=== PATIENT | male | born 1955 | race Caucasian/White ===

== ENCOUNTER → 2016-08-31 | Outpatient (CLI) | payer BC ==
[~2016-08-31] MED LIST: OPTIRAY 320 IV PRN
--- NOTE | 2016-08-31 14:09 | DIAGNOSTIC IMAGING REPORT ---
CT SCAN OF THE CHEST, ABDOMEN, AND PELVIS WITH IV CONTRAST CLINICAL HISTORY: Sigmoid colon polyp. COMPARISON STUDY: Chest x-ray dated 05/16/2013. TECHNIQUE: Following the IV administration of 92 of Optiray 320, CT scan of the chest, abdomen, and pelvis was performed from the thoracic inlet to the proximal femora. Images are reviewed in the axial, sagittal, and coronal planes. IV contrast was administered without complication. Automated dose control exposure was utilized. CT DOSE: 474.17 mGy.cm FINDINGS: CHEST: Thyroid: Imaged portions of the thyroid gland are normal in size and attenuation. Thoracic aorta: There is mild atherosclerotic calcification of the thoracic aorta, which is normal in caliber and demonstrates standard 3-vessel arch anatomy. No dissection is seen. Heart: The heart is normal in size and configuration, and without pericardial effusion. There are coronary artery calcifications. The pulmonary trunk is normal in caliber. Lungs and pleural spaces: There is biapical scarring. No airspace consolidation or pleural effusion is seen. The trachea and central airways are clear. There is a small fat-containing Bochdalek hernia is noted at the right lung base. No concerning pulmonary lesion is seen. Mediastinum: There is no mediastinal lymphadenopathy. Gillian: Clear. Axillae: There is no axillary lymphadenopathy. Bony thorax: No lytic or blastic lesions are identified. Arthritic change is noted in the shoulders. ABDOMEN AND PELVIS: Liver: The contrast-enhanced liver is normal in size, contour, and attenuation. There is no intrahepatic or ductal dilatation. Scattered hepatic cysts measure up to 1.5 cm. Additional subcentimeter hypodensities also likely represent cysts but are too small for definitive characterization. The hepatic veins and portal veins are patent. Gallbladder: Unremarkable. Spleen: Normal in size and attenuation. Pancreas: Unremarkable. Adrenal glands: Unremarkable. Kidneys: The contrast enhanced kidneys are normal in size and without hydronephrosis. The kidneys enhance symmetrically. Abdominal vasculature: The abdominal aorta is normal in course and caliber noting moderate to advanced atherosclerotic calcification. Bowel: The small bowel and colon are normal in course and caliber. There is moderate diverticulosis of left colon without CT evidence of acute diverticulitis. Moderate colonic fecal retention is observed. The appendix is well-visualized and normal. Peritoneum: There is no intraperitoneal free air or abdominal ascites. Lymphadenopathy: None. Pelvic viscera: The bladder, prostate, and seminal vesicles are normal as visualized. There is a tiny fat-containing right inguinal hernia. Skeletal structures: No lytic or blastic lesions are seen. There are bilateral pars defects at L4 with 10 mm anterolisthesis at L4-L5. There is advanced degenerative disc space narrowing and endplate sclerosis at this level. IMPRESSION: 1. There is no evidence of metastatic disease in the chest, abdomen, or pelvis. 2. Lungs are clear. 3. There are no acute infectious or inflammatory findings in the abdomen or pelvis. 4. There is moderate diverticulosis of left colon without CT evidence of acute epiglottis. 5. The reported colonic polyp was not visualized by CT. 6. Additional changes as above. Electronically signed by: Orlando Brian M.D. 08/31/2016 2:08 PM Dictated Date/Time: 08/31/2016 1:56 PM
== END | disposition home or self-care (01) ==
LOC: C.CTS 13:33
PROVIDERS: ATTEND Colon & Rectal Surgery
DX: K63.5 Polyp of colon (principal); K57.30 Diverticulosis of large intestine without perforation or abscess without bleeding

== ENCOUNTER → 2016-12-24 | Outpatient (CLI) | payer BC ==
[2016-12-24 14:56] LABS: BASO % 0.5 %; BASO ABS # 0.03 K/uL (0-0.2); COMPLETE YES; EOS % 0.9 %; HEMATOCRIT 45.8 % (42-52); IG% 0.2 %; LYMPH % 22.8 %; LYMPH ABS # 1.28 K/uL (1.2-3.4); MEAN CELL VOLUME 91.4 fL (80-100); MEAN CORPUSCULAR HEMOGLOBIN 30.5 pg (25-34); MEAN CORPUSCULAR HGB CONC 33.4 g/dl (32-36); MEAN PLATELET VOLUME 10.7 fL (7.4-10.4); MONO % 6.1 %; NEUT % 69.5 %; PLATELET COUNT 215 K/uL (130-400); RED BLOOD COUNT 5.01 M/uL (4.7-6.1); WHITE BLOOD COUNT 5.61 K/uL (4.8-10.8)
[2016-12-24 15:08] LABS: CHOLESTEROL/HDL RATIO 2.9; PROSTATE SPECIFIC ANTIGEN 0.593 ng/ml (0.000-4.000)
== END | disposition home or self-care (01) ==
LOC: C.LAB1850 11:29
PROVIDERS: ATTEND Internal Medicine
DX: Z12.5 Encounter for screening for malignant neoplasm of prostate (principal); K62.5 Hemorrhage of anus and rectum; E78.00 Pure hypercholesterolemia, unspecified

== ENCOUNTER → 2017-10-07 | Outpatient (CLI) | payer BC ==
--- NOTE | 2017-10-07 12:09 | DIAGNOSTIC IMAGING REPORT ---
CT OF THE CHEST WITH IV CONTRAST CLINICAL HISTORY: RECTAL CA COMPARISON STUDY: 08/31/2016 TECHNIQUE: Following the IV administration of 117 mL of Optiray-320, CT of the thorax was performed from the thoracic inlet to the lung bases. Images are reviewed in the axial, sagittal, and coronal planes. IV contrast was administered without complication. A dose lowering technique was utilized adhering to the principles of ALARA. CT DOSE: 540.16 mGy.cm FINDINGS: Thyroid: Imaged portions of the thyroid gland are normal in appearance. Thoracic aorta: There is mild ectasia of the ascending thoracic aorta which measures 39 mm in diameter. Pulmonary vasculature: The pulmonary trunk is normal in caliber. There are no central filling defects identified to suggest pulmonary embolus. Note that this examination was not protocoled for the evaluation of pulmonary emboli. HEART: The heart is normal in size and configuration, without pericardial effusion. Lungs and pleural spaces: There is mild biapical scarring. There is no focal pulmonary consolidation. There are no pleural effusions. No suspicious pulmonary masses are visualized. Mediastinum: There is no mediastinal lymphadenopathy. Gillian: There is no evidence of pathologic hilar adenopathy Axilla: Clear. Upper abdomen: Scattered hepatic hypodensities remain stable and likely represent cysts. Skeletal structures: There are no lytic or blastic osseous lesions. IMPRESSION: No evidence of intrathoracic metastatic disease. Electronically signed by: Vlad Govea M.D. 10/07/2017 12:08 PM Dictated Date/Time: 10/07/2017 12:03 PM
--- NOTE | 2017-10-07 12:16 | DIAGNOSTIC IMAGING REPORT ---
ABDOMEN AND PELVIS CT WITH IV CONTRAST HISTORY: Follow-up study in a patient with rectal carcinoma. Subsequent treatment strategy. RECTAL CA TECHNIQUE: Multiaxial CT images of the abdomen and pelvis were performed following the use of intravenous contrast. A dose lowering technique was utilized adhering to the principles of ALARA. COMPARISON STUDY: CT chest of same day, CT abdomen and pelvis 08/31/2016. FINDINGS: Lung bases appear clear without metastatic foci identified. There is no pneumatosis or pneumoperitoneum identified. The imaged inferior cardiac chambers are unremarkable. Nonspecific mildly prominent right-sided retrocrural lymph node, 8 mm. There are multiple low attenuating lesions again noted throughout the liver which appear unchanged, many of these lesions are too small to characterize however suggest cysts. 8 mm lesion of the posterior right hepatic lobe may demonstrate some nodular enhancement, possibly reflecting a hemangioma. No definite evidence of intrahepatic metastasis. No intrahepatic biliary ductal dilation. Gallbladder is partially collapsed. Spleen, pancreas and adrenal glands are within normal limits. 4 mm low attenuating lesion of the posterior interpolar left kidney suggests renal cyst. No renal calculi or obstructive uropathy. Urinary bladder is partially collapsed with wall thickening, likely secondary to partial distention. Calcifications are seen within the central prostate which appears mildly prominent in size. Multiple phleboliths of the pelvis. Moderate atherosclerosis of the aorta without aneurysm. No definite pathologic adenopathy identified. There is no bowel obstruction identified. Postoperative changes compatible with partial sigmoid colon resection. Mild colonic diverticulosis without diverticulitis. The appendix is not definitively seen. No secondary signs to suggest acute appendicitis. No ascites or significant inflammatory changes identified. Soft tissues are unremarkable. Bones appear intact without suspicious lytic or blastic bony lesions. Severe intervertebral disc space narrowing at L4-L5. Remote bilateral pars defects at L4 with 10 mm anterolisthesis. Severe facet arthropathy at L4-L5 and L5-S1. IMPRESSION: 1. Postoperative changes from prior partial sigmoid colon resection. 2. No evidence of pathologic adenopathy or metastatic disease within the abdomen or pelvis. 3. Nonspecific mildly prominent right-sided retrocrural lymph node, stable from comparison. 4. Colonic diverticulosis without CT evidence of acute diverticulitis. 5. Additional findings as above. Electronically signed by: Edd Navarro M.D. 10/07/2017 12:14 PM Dictated Date/Time: 10/07/2017 12:03 PM
== END | disposition home or self-care (01) ==
LOC: C.CTS 11:37
PROVIDERS: ATTEND Colon & Rectal Surgery
DX: C20 Malignant neoplasm of rectum (principal)

== ENCOUNTER 2021-04-28 09:15 | Observation (INO) ==
[2021-04-28 09:59] LABS: Hematocrit (blood only) 47.2 % (42-52); Hemoglobin 16.4 g/dL (14.0-18.0); Mean Corpuscular Hemoglobin 32.3 pg (25-34); Mean Corpuscular Hgb Conc 34.7 g/dL (32-36); Mean Corpuscular Volume 93.1 fL (80-100); Mean Platelet Volume 10.8 fL (7.4-10.4); Platelet Count 218 K/uL (130-400); RDW Standard Deviation 44.4 fL (36.4-46.3); Red Blood Count 5.07 M/uL (4.7-6.1); White Blood Count 5.75 K/uL (4.8-10.8)
[2021-04-28 10:02] LABS: Appearance Urine Clear (Clear); Bilirubin Urine Negative (Negative); Blood Urine Negative (Negative); Color Urine Yellow; Glucose Urine UA Negative (Negative); Ketones Urine Negative (Negative); Leukocyte Esterase Urine Negative (Negative); Nitrite Urine Negative (Negative); Protein Urine Negative (Negative); Specific Gravity Urine 1.003 (1.000-1.030); Urobilinogen Urine Negative (Negative); pH Urine 7.5 (4.5-7.5)
--- NOTE | 2021-04-28 10:11 | Emergency Department Note ---
History of Present Illness General Chief complaint: Confusion Stated complaint: DISORIENTED,SHORT TERM MEMORY LOSS Time Seen by Provider: 04/28/21 09:52 Source: patient, RN notes reviewed and old records reviewed Mode of arrival: ambulatory Limitations: no limitations History of Present Illness This patient is a 65-year-old previously healthy male who had an episode where he suddenly became disoriented according to himself. He said this happened between 745 and 815 he estimates. He was okay when he woke up at 6:00 this morning he has had no recent illness or trauma. He was working on email in his office at home and could remember who is sending the email to and he could not figure out what he was doing and where his had gone. An employee called him and he could not recall what was going on there either. He feels better the episode he estimates last about 1/2-hour he says he still feels a little foggy but has no other complaints. He has had no nausea or vomiting or numbness or weakness no headache neck pain or stiffness. No difficulty speaking or swallowing at any point. No fever or chills. No change in vision. No chest pain shortness of breath or pleurisy. No syncope or presyncope no dizziness. No urinary symptoms such as dysuria or hematuria. No bowel or bladder problems no back pain no blood in stool. He thinks he had an episode like this once in the past. Home Medications Medication Instructions Recorded Confirmed Type aspirin 81 mg tablet,delayed 81 mg PO HS tab 12/29/18 04/28/21 History release atorvastatin 20 mg tablet 20 mg PO HS #90 tab 01/16/21 04/28/21 Rx nystatin-triamcinolone 100,000 1 appln TOP BID PRN 04/28/21 04/28/21 History unit/g-0.1 % topical cream omega 0-mco-eat-fish oil 1,000 mg 1 cap PO DAILY 04/28/21 04/28/21 History (120 mg-180 mg) capsule (Fish Oil) Allergies Allergy/AdvReac Type Severity Reaction Status Date / Time No Known Drug Allergies Allergy Verified 01/16/21 08:18 Past Med/Surg History Medical History (Updated 04/28/21 @ 16:38 by Michael Metz MD) Anxiety Colon cancer 08/2016--SX Depression Hyperlipidemia Osteoarthritis Surgical History History of bowel resection (09/08/16) 2017--[place] [facility] [place] of colonoscopy History of repair of left rotator cuff (~2014) History of surgery (05/29/13) spermatocelectomy History of tooth extraction WISDOM TEETH Family History Mother Family history of reaction to anesthesia NAUSEATED Palpitations Grandmother Diabetes Hypertension Father Myocardial infarction Heart disease Aunt Hypertension Breast cancer Denies family history of Colon cancer Ovarian cancer Prostate cancer Social History Smoking Status: Never smoker Second Hand Exposure: No; Hx Alcohol Use: Yes Alcohol type: hard liquor Hx Substance Use: No Preferred Language: Serbian Communication Ability: Effective Supervising Law Enforcement Analyst Required: No Beliefs That Will Affect Care: Christianity Christianity Beliefs: PENTECOSTALISM marital status: Current Living Situation: Significant Other current occupational status: employed Feels Safe at Home: Yes Childhood Exposure to Second-Hand Smoke: Yes Dental Care, Regularly: Yes Physical Activity Frequency: Daily Seatbelt Use: always Sunscreen Use: No Assistive Devices: Glasses Review of Systems A total of 10 systems reviewed and were otherwise negative Physical Exam Vital Signs Vital Signs - 24 hr 04/28/21 09:18 04/28/21 09:48 04/28/21 10:00 Temperature 36.6 C Temperature Source Temporal Artery Scan Pulse Rate 79 67 68 Pulse Rate from SpO2 Sensor 67 Pulse Rhythm Respiratory Rate 16 19 18 Blood Pressure 155/92 H 145/98 H 145/98 H Blood Pressure Mean 113 113 113 Pulse Oximetry 99 97 98 Oxygen Delivery Method Room Air Room Air Room Air Sepsis Recent Fever Within 48 Hours No Sepsis New/Unexplained Change in Mental Status Yes Sepsis Action Taken by Nursing No Action Required 04/28/21 10:26 04/28/21 10:30 04/28/21 11:10 Temperature Temperature Source Pulse Rate 84 60 64 Pulse Rate from SpO2 Sensor 61 Pulse Rhythm Regular Respiratory Rate 18 18 14 Blood Pressure 135/96 140/88 Blood Pressure Mean 109 105 Pulse Oximetry 95 99 99 Oxygen Delivery Method Room Air Room Air Room Air Sepsis Recent Fever Within 48 Hours Sepsis New/Unexplained Change in Mental Status Sepsis Action Taken by Nursing 10/12/21 11:30 Temperature Temperature Source Pulse Rate 63 Pulse Rate from SpO2 Sensor Pulse Rhythm Respiratory Rate 16 Blood Pressure 128/91 Blood Pressure Mean 103 Pulse Oximetry 98 Oxygen Delivery Method Room Air Sepsis Recent Fever Within 48 Hours Sepsis New/Unexplained Change in Mental Status Sepsis Action Taken by Nursing General: Well developed well nourished middle-age male who appears in no acute distress, breathing comfortably on room air. Normal speech, nonslurred. Alert and orient x3. Able to name objects and read sentences without any difficulty. HEENT: Normal cephalic atraumatic. Pupils are equal round and reactive to light. Extraocular movements are intact. Oropharynx is pink with moist mucous membranes. No swelling of the mouth lips or tongue. Neck: Supple with a midline trachea. No meningeal signs or stiffness, no JVD or bruits. No Stridor. Chest: Clear to auscultation bilaterally. No wheezes or rhonchi. No increased work of breathing. Heart: Regular rate and rhythm without murmurs or gallops. Abdomen: Soft nontender, nondistended without rebound guarding or rigidity. Extremities: No cyanosis clubbing or edema. No calf tenderness or assymetry Spine/Back. Non tender to palpation. No CVA tenderness Skin: Good turgor without rashes. Neurologic exam: Cranial nerves two through 12 are intact. Motor and sensation are intact and symmetrical throughout. He has no neurologic deficits on the st roke scale Course Administered Medications Discontinued Medications Ioversol (Optiray 320 125ml) 120 ml IV ONCE ONE Stop: 04/28/21 10:46 Last Admin: 04/28/21 10:42 Dose: 120 ml Documented by: [id number] Medical Decision Making Differential Diagnosis Transient global amnesia, electrolyte or metabolic abnormality, intracranial process, TIA, CVA, anxiety, Covid, hypoglycemia, infection Medical Records Attestation: I reviewed the patient's medical records. Home Medications Current Medication List: was personally reviewed by me Laboratory Data Attestation: I reviewed the patient's lab results. Result diagrams: 04/28/21 09:44 04/28/21 09:44 Lab Results 04/28/21 04/28/21 04/28/21 Range/Units 09:38 09:44 09:44 WBC 5.75 (4.8-10.8) K/uL RBC 5.07 (4.7-6.1) M/uL Hgb 16.4 (14.0-18.0) g/dL Hct 47.2 (42-52) % MCV 93.1 (80-100) fL MCH 32.3 (25-34) pg MCHC 34.7 (32-36) g/dL RDW Std Deviation 44.4 (36.4-46.3) fL RDW Coeff of Nini 13.0 (11.5-14.5) % Plt Count 218 (130-400) K/uL MPV 10.8 H (7.4-10.4) fL PT 10.3 (9.0-12.0) Seconds INR 1.0 (0.9-1.1) APTT 27.1 (21.0-31.0) Seconds PTT Ratio 1.0 Sodium (136-145) mmol/L Potassium (3.5-5.1) mmol/L Chloride (98-107) mmol/L Carbon Dioxide (21-32) mmol/L Anion Gap (3-11) BUN (7-18) mg/dl Creatinine (0.6-1.4) mg/dl Est Cr Clr Drug Dosing ml/min Est GFR ( Amer) ml/min Est GFR (Non-Af Amer) ml/min BUN/Creatinine Ratio (10-20) Glucose (70-99) mg/dl Calcium (8.5-10.1) mg/dl Magnesium (1.8-2.4) mg/dl Total Bilirubin (0.2-1) mg/dl AST (15-37) U/L ALT (12-78) U/L Alkaline Phosphatase (45-117) U/L Troponin I (0-0.045) ng/ml Total Protein (6.4-8.2) gm/dl Albumin (3.4-5.0) gm/dl Globulin (2.5-4.0) gm/dl Albumin/Globulin Ratio (0.9-2) Urine Color Yellow Urine Appearance Clear (Clear) Urine pH 7.5 (4.5-7.5) Ur Specific [place] 1.003 (1.000-1.030) Urine Protein Negative (Negative) Urine Glucose (UA) Negative (Negative) Urine Ketones Negative (Negative) Urine Blood Negative (Negative) Urine Nitrite Negative (Negative) Urine Bilirubin Negative (Negative) Urine Urobilinogen Negative (Negative) Ur Leukocyte Esterase Negative (Negative) COVID-19 Eval Order SARS-CoV-2 (PCR) (Negative) 04/28/21 04/28/21 04/28/21 Range/Units 09:44 10:13 10:13 WBC (4.8-10.8) K/uL RBC (4.7-6.1) M/uL Hgb (14.0-18.0) g/dL Hct (42-52) % MCV (80-100) fL MCH (25-34) pg MCHC (32-36) g/dL RDW Std Deviation (36.4-46.3) fL RDW Coeff of Nini (11.5-14.5) % Plt Count (130-400) K/uL MPV (7.4-10.4) fL PT (9.0-12.0) Seconds INR (0.9-1.1) APTT (21.0-31.0) Seconds PTT Ratio Sodium 139 (136-145) mmol/L Potassium 4.0 (3.5-5.1) mmol/L Chloride 106 (98-107) mmol/L Carbon Dioxide 27 (21-32) mmol/L Anion Gap 6.0 (3-11) BUN 14 (7-18) mg/dl Creatinine 0.77 (0.6-1.4) mg/dl Est Cr Clr Drug Dosing 104.9 ml/min Est GFR ( Amer) 111.9 ml/min Est GFR (Non-Af Amer) 96.6 ml/min BUN/Creatinine Ratio 17.7 (10-20) Glucose 116 H (70-99) mg/dl Calcium 9.1 (8.5-10.1) mg/dl Magnesium 2.1 (1.8-2.4) mg/dl Total Bilirubin 1.0 (0.2-1) mg/dl AST 21 (15-37) U/L ALT 35 (12-78) U/L Alkaline Phosphatase 71 (45-117) U/L Troponin I < 0.015 (0-0.045) ng/ml Total Protein 7.2 (6.4-8.2) gm/dl Albumin 3.8 (3.4-5.0) gm/dl Globulin 3.4 (2.5-4.0) gm/dl Albumin/Globulin Ratio 1.1 (0.9-2) Urine Color Urine Appearance (Clear) Urine pH (4.5-7.5) Ur Specific [place] (1.000-1.030) Urine Protein (Negative) Urine Glucose (UA) (Negative) Urine Ketones (Negative) Urine Blood (Negative) Urine Nitrite (Negative) Urine Bilirubin (Negative) Urine Urobilinogen (Negative) Ur Leukocyte Esterase (Negative) COVID-19 Eval Order Covid19 at [facility] SARS-CoV-2 (PCR) NEGATIVE (Negative) Imaging Data Attestation: I personally reviewed and interpreted this imaging study as follows: My Impression: Chest x-rayno acute infiltrate, failure, pneumothorax seen Radiologist's Impression: Chest X-Ray 04/28/21 09:38 XR chest 1V portable CLINICAL HISTORY: stroke alert COMPARISON STUDY: Chest radiograph May 16, 2013. Chest CT October 07, 2017. FINDINGS: Lung volumes are normal. Lungs are clear. There is no pneumothorax or pleural effusion. Cardiac size is normal. Mediastinal contours are normal. There is no evidence for pulmonary edema. IMPRESSION: No acute cardiopulmonary findings. ACT 112: Negative or not required by law. Electronically signed by: Matteo Haley M.D. 04/28/2021 10:[address] 04/28/21 10:[address], HEAD CTA HISTORY: episode of confusion TECHNIQUE: Multiaxial CT images of the head were performed both before and after the intravenous administration of contrast to evaluate the major cerebral vessels. Maximum intensity projection images were also obtained. A dose lowerin g technique was utilized adhering to the principles of ALARA. COMPARISON: None. FINDINGS: Head CT: The paranasal sinuses and mastoid air cells are clear. The calvarium and skull base are intact. The ventricles and sulci are within normal limits. There is no mass, hematoma, midline shift, or acute infarct. Head CTA: Visualized intracranial internal carotid arteries, distal vertebral arteries, and basilar artery are widely patent. There is no significant stenosis, occlusion, or aneurysm seen within the bilateral ACAs, MCAs, or resident care associate. Severely hypoplastic distal left vertebral artery. This is likely developmental. There is a dominant distal right vertebral artery with a focal area of calcified plaque. Please refer to same day neck CTA for further evaluation of the left cervical internal carotid artery. The major dural venous sinuses are patent. IMPRESSION: 1. No acute intracranial abnormality. 2. No significant stenosis, occlusion, or aneurysm within the [place] ACT 112: Negative or not required by law. Electronically signed by: Yg Valentine M.D. 04/28/2021 11:06 AM Head CTA 04/28/21 10:[address], HEAD CTA HISTORY: episode of confusion TECHNIQUE: Multiaxial CT images of the head were performed both before and after the intravenous administration of contrast to evaluate the major cerebral vessels. Maximum intensity projection images were also obtained. A dose lowerin g technique was utilized adhering to the principles of ALARA. COMPARISON: None. FINDINGS: Head CT: The paranasal sinuses and mastoid air cells are clear. The calvarium and skull base are intact. The ventricles and sulci are within normal limits. There is no mass, hematoma, midline shift, or acute infarct. Head CTA: Visualized intracranial internal carotid arteries, distal vertebral arteries, and basilar artery are widely patent. There is no significant stenosis, occlusion, or aneurysm seen within the bilateral ACAs, MCAs, or resident care associate. Severely hypoplastic distal left vertebral artery. This is likely developmental. There is a dominant distal right vertebral artery with a focal area of calcified plaque. Please refer to same day neck CTA for further evaluation of the left cervical internal carotid artery. The major dural venous sinuses are patent. IMPRESSION: 1. No acute intracranial abnormality. 2. No significant stenosis, occlusion, or aneurysm within the [place] ACT 112: Negative or not required by law. Electronically signed by: gY Valentine M.D. 04/28/2021 11:06 AM Neck CTA 04/28/21 10:05 CT ANGIOGRAPHY OF THE NECK WITH CONTRAST CLINICAL HISTORY: episode of confusion COMPARISON STUDY: No previous studies for comparison. Technique: CT angiography of the carotid and vertebral arteries was obtained using Optiray and 3D reconstruction on an independent workstation. NASCET criteria was utilized. Automated exposure control was utilized for the study. A dose lowering technique was utilized adhering to the principles of ALARA. Findings: A 4 mm right upper lobe nodule is similar to prior chest CTs. This is likely benign. No acute cervical spine fracture. The right vertebral artery is dominant and patent. The left vertebral artery is diminutive with mild narrowing at the vessel origin. CTA of the head will be reported separately. There is mild plaque within the proximal bilateral internal carotid arteries. Note is made of abnormal appearance of the distal cervical portion of the left internal carotid artery with an outpouching measures 1.3 x 0.7 cm in the craniocaudal by AP dimensions respectively. There is moderate associated calcified plaque. There is mild associated luminal narrowing of the distal cervical portion of the left internal carotid artery. This finding is not acute. No additional significant abnormalities are identified within the major vessels of the neck. IMPRESSION: 1. Abnormal appearance of the distal cervical portion of the left internal carotid artery with a 1.3 x 0.7 cm outpouching which favors a saccular aneurysm. Moderate associated calcified plaque with mild luminal narrowing. Chronic underlying dissection cannot be excluded. 2. No additional significant abnormalities within the major vessels of the neck. 3. Dominant, patent right vertebral artery. Diminutive left vertebral artery. ACT 112: Negative or not required by law. Electronically signed by: Matteo Haley M.D. 04/28/2021 11:11 AM ECG Data Attestation: I personally reviewed and interpreted this ECG as follows: Indication: + weakness Rate (beats per minute): 74 Rhythm: + normal sinus ECG Intervals/blocks: + Normal QRS, + Normal QT and + Normal MA ECG Maud: + Normal ECG ST segments: + Normal ST segments ECG Findings: no PACs or no PVCs Comparison ECG Date: from (04/20/18) Change: no significant change MDM Narrative This patient comes in as described above. He was placed in room B4. Is here after having episode of confusion. He seems to be doing better now. he has a nonfocal normal neurologic exam at present. IV access established and blood work was obtained a full stroke type work-up was obtained including CAT scan of the head as well as CTA of the head and neck. Multiple blood testing was obtained EKG was obtained. EKG does not suggest acute coronary syndrome or arrhythmia, nor do his symptoms. Troponin is normal. He has no acute electrolyte or metabolic abnormalities. There is nothing suggest liver, gallbladder, or pancreas disease. CAT scan of the head with CTA of the head were also unremarkable. The CT of the neck has some abnormality in the left carotid there may be an aneurysm it is possible he could have a chronic dissection. I do think he likely had a transient global amnesia episode but with the possible carotid disease,I do think he needs to come in as well for neurologic work-up and evaluation. I have consulted Dr. Aguirre to see him for these measures. Continuous cardiac monitoring: An order was placed in EMR for continuous monitor worker. Upon my interpretation the patient was noted be in normal sinus rhythm with a rate of 70 Impression & Plan Transient global amnesia, Left-sided carotid artery disease, Lab test negative for COVID-19 virus, Episode of confusion Discharge Plan Visit Data Chief Complaint: Confusion Stated Complaint: DISORIENTED,SHORT TERM MEMORY LOSS ED Provider: Michael Metz Discharge Problem: Transient global amnesia, Left-sided carotid artery disease, Lab test negative for COVID-19 virus, Episode of confusion Discharge Problem: Left-sided carotid artery disease Qualifiers: Carotid artery disease type: unspecified Qualified Code(s): I77.9 - Disorder of arteries and arterioles, unspecified
[2021-04-28 10:14] LABS: Partial Thromboplastin Time 27.1 Seconds (21.0-31.0); Prothrombin Time 10.3 Seconds (9.0-12.0)
[2021-04-28 10:18] LABS: Alanine Aminotransferase 35 U/L (12-78); Albumin Level 3.8 gm/dl (3.4-5.0); Aspartate Aminotransferase 21 U/L (15-37); BUN Creatinine Ratio 17.7 (10-20); Blood Urea Nitrogen 14 mg/dl (7-18); Calcium 9.1 mg/dl (8.5-10.1); Carbon Dioxide 27 mmol/L (21-32); Chloride 106 mmol/L (98-107); Creatinine Clr Calc Pharmacy 104.9 ml/min; Est GFR (African American) 111.9 ml/min; Est GFR (Non-African American) 96.6 ml/min; Glucose 116 mg/dl (70-99); Magnesium 2.1 mg/dl (1.8-2.4); Sodium 139 mmol/L (136-145)
[2021-04-28 10:20] LABS: Albumin Globulin Ratio 1.1 (0.9-2); Alkaline Phosphatase 71 U/L (45-117); Globulin 3.4 gm/dl (2.5-4.0); Total Protein 7.2 gm/dl (6.4-8.2)
--- NOTE | 2021-04-28 10:26 | XRay Report ---
XR chest 1V portable CLINICAL HISTORY: stroke alert COMPARISON STUDY: Chest radiograph May 16, 2013. Chest CT October 07, 2017. FINDINGS: Lung volumes are normal. Lungs are clear. There is no pneumothorax or pleural effusion. Car diac size is normal. Mediastinal contours are normal. There is no evidence for pulmonary edema. IMPRESSION: No acute cardiopulmonary findings. ACT 112: Negative or not required by law. Electronically signed by: Matteo Haley M.D. 04/28/2021 10:25 AM
[2021-04-28] MEDS ORDERED: OPTIRAY 320 125ml IV ONE (10:45)
--- NOTE | 2021-04-28 11:07 | CT Scan Report ---
NONCONTRAST HEAD CT, HEAD CTA HISTORY: episode of confusion TECHNIQUE: Multiaxial CT images of the head were performed both before and after the intravenous admi nistration of contrast to evaluate the major cerebral vessels. Maximum intensity projection images we re also obtained. A dose lowering technique was utilized adhering to the principles of ALARA. COMPARISON: None. FINDINGS: Head CT: The paranasal sinuses and mastoid air cells are clear. The calvarium and skull base are inta ct. The ventricles and sulci are within normal limits. There is no mass, hematoma, midline shift, or acute infarct. Head CTA: Visualized intracranial internal carotid arteries, distal vertebral arteries, and basilar a rtery are widely patent. There is no significant stenosis, occlusion, or aneurysm seen within the erik ateral ACAs, MCAs, or open claims representative. Severely hypoplastic distal left vertebral artery. This is likely develop mental. There is a dominant distal right vertebral artery with a focal area of calcified plaque. Plea se refer to same day neck CTA for further evaluation of the left cervical internal carotid artery. Th e major dural venous sinuses are patent. IMPRESSION: 1. No acute intracranial abnormality. 2. No significant stenosis, occlusion, or aneurysm within the [place] ACT 112: Negative or not required by law. Electronically signed by: Yg Valentine M.D. 04/28/2021 11:06 AM
--- NOTE | 2021-04-28 11:07 | CT Scan Report ---
NONCONTRAST HEAD CT, HEAD CTA HISTORY: episode of confusion TECHNIQUE: Multiaxial CT images of the head were performed both before and after the intravenous admi nistration of contrast to evaluate the major cerebral vessels. Maximum intensity projection images we re also obtained. A dose lowering technique was utilized adhering to the principles of ALARA. COMPARISON: None. FINDINGS: Head CT: The paranasal sinuses and mastoid air cells are clear. The calvarium and skull base are inta ct. The ventricles and sulci are within normal limits. There is no mass, hematoma, midline shift, or acute infarct. Head CTA: Visualized intracranial internal carotid arteries, distal vertebral arteries, and basilar a rtery are widely patent. There is no significant stenosis, occlusion, or aneurysm seen within the erik ateral ACAs, MCAs, or glass lined tank repairer. Severely hypoplastic distal left vertebral artery. This is likely develop mental. There is a dominant distal right vertebral artery with a focal area of calcified plaque. Plea se refer to same day neck CTA for further evaluation of the left cervical internal carotid artery. Th e major dural venous sinuses are patent. IMPRESSION: 1. No acute intracranial abnormality. 2. No significant stenosis, occlusion, or aneurysm within the [place] ACT 112: Negative or not required by law. Electronically signed by: Yg Valentine M.D. 04/28/2021 11:06 AM
--- NOTE | 2021-04-28 11:13 | CT Scan Report ---
CT ANGIOGRAPHY OF THE NECK WITH CONTRAST CLINICAL HISTORY: episode of confusion COMPARISON STUDY: No previous studies for comparison. Technique: CT angiography of the carotid and vertebral arteries was obtained using Optiray and 3D rec onstruction on an independent workstation. NASCET criteria was utilized. Automated exposure control was utilized for the study. A dose lowering technique was utilized adhering to the principles of ALA RA. Findings: A 4 mm right upper lobe nodule is similar to prior chest CTs. This is likely benign. No acu te cervical spine fracture. The right vertebral artery is dominant and patent. The left vertebral art kim is diminutive with mild narrowing at the vessel origin. CTA of the head will be reported separate ly. There is mild plaque within the proximal bilateral internal carotid arteries. Note is made of abn ormal appearance of the distal cervical portion of the left internal carotid artery with an outpouchi ng measures 1.3 x 0.7 cm in the craniocaudal by AP dimensions respectively. There is moderate associa carol calcified plaque. There is mild associated luminal narrowing of the distal cervical portion of th e left internal carotid artery. This finding is not acute. No additional significant abnormalities ar e identified within the major vessels of the neck. IMPRESSION: 1. Abnormal appearance of the distal cervical portion of the left internal carotid artery with a 1.3 x 0.7 cm outpouching which favors a saccular aneurysm. Moderate associated calcified plaque with mild luminal narrowing. Chronic underlying dissection cannot be excluded. 2. No additional significant abnormalities within the major vessels of the neck. 3. Dominant, patent right vertebral artery. Diminutive left vertebral artery. ACT 112: Negative or not required by law. Electronically signed by: Matteo Haley M.D. 04/28/2021 11:11 AM
[2021-04-28 11:22] LABS: Troponin I < 0.015 ng/ml (0-0.045)
--- NOTE | 2021-04-28 13:02 | History & Physical Report ---
Date of Service April 28, 2021 Assessment & Plan (1) Amnesia, global, transient: Plan: Suspect this represent a TIA but also concerned about a partial seizure I will place patient in monitored observation on stroke protocol Check MRI of the brain Check EEG Patient already on a low-dose aspirin which will be continued Continue atorvastatin as ordered, check fasting lipid panel I will ask neurology to evaluate for further recommendations (2) Hypercholesterolemia: Plan: Continue atorvastatin as noted above Check fasting lipid panel (3) Carotid aneurysm, left: Plan: Unclear if this is relevant the patient symptoms. Will await neurology evaluation. If further work-up desired, consideration to vascular consultation as well History of Present Illness Chief Complaint: confusion Primary Care Provider: Charli Acosta MD This is a 65-year-old male past medical history hypercholesterolemia that presents today complaining of episodic confusion. Patient is here with significant other and is a good historian. Patient tells me that he was feeling fine today. He went to his home office to work on his computer. While he was working on a schedule, he noted that he had significant amnesia-like symptoms. He was able to see the schedule but did not recognize any of the names or why he was looking at it. He may have answered some emails but did not recall what may have been exchanged or why he was sending these. At one point, an employee called and he was unable to remember who the employee was or why he was calling. This confusion lasted approximately 30 minutes and seemed to mostly resolved very suddenly. At no time did he have any other neurologic symptoms such as weakness, numbness, tingling of any extremities, slurred speech, visual changes, headache, or other issues. At the time my evaluation, the patient tells me that he feels essentially back to normal if not slightly foggy in his mentation. Patient has had not had any recurrent neurologic symptoms since his arrival to the emergency room. Patient is now being placed in observation for possible TIA versus seizure. Allergies Allergy/AdvReac Type Severity Reaction Status Date / Time No Known Drug Allergies Allergy Verified 01/16/21 08:18 Home Medications Medication Instructions Recorded Confirmed Type aspirin 81 mg tablet,delayed 81 mg PO HS tab 12/29/18 04/28/21 History release atorvastatin 20 mg tablet 20 mg PO HS #90 tab 01/16/21 04/28/21 Rx nystatin-triamcinolone 100,000 1 appln TOP BID PRN 10/12/21 10/12/21 History unit/g-0.1 % topical cream omega 6-kjo-iry-fish oil 1,000 mg 1 cap PO DAILY 04/28/21 04/28/21 History (120 mg-180 mg) capsule (Fish Oil) Past Med/Surg History Medical History (Updated 04/28/21 @ 12:59 by Imtiaz Aguirre DO) Anxiety Colon cancer 08/2016--SX Depression Hyperlipidemia Osteoarthritis Surgical History History of bowel resection (09/08/16) 2016--FOR COLON CANCER @ [facility] [place] History of colonoscopy History of repair of left rotator cuff (~2014) History of surgery (05/29/13) spermatocelectomy History of tooth extraction WISDOM TEETH Family History Mother Family history of reaction to anesthesia NAUSEATED Palpitations Grandmother Diabetes Hypertension Father Myocardial infarction Heart disease Aunt Hypertension Breast cancer Denies family history of Colon cancer Ovarian cancer Prostate cancer Social History Smoking Status: Never smoker Second Hand Exposure: No; Hx Alcohol Use: Yes Alcohol type: hard liquor Hx Substance Use: No Preferred Language: Venezuelan Communication Ability: Effective Engraver Jewelry Required: No Beliefs That Will Affect Care: Voodoo Voodoo Beliefs: SHINTO marital status: Current Living Situation: Significant Other current occupational status: employed Feels Safe at Home: Yes Childhood Exposure to Second-Hand Smoke: Yes Dental Care, Regularly: Yes Physical Activity Frequency: Daily Seatbelt Use: always Sunscreen Use: No Assistive Devices: Glasses Review of Systems Constitutional: no fever, no chills, no weakness, no weight loss and no weight gain Eyes: as per Subjective / HPI Respiratory: no cough, no chest congestion, no dyspnea and no dyspnea on exertion Cardiovascular: no chest pain, no orthopnea, no palpitations, no lightheadedness and no edema Gastrointestinal: no abdominal pain, no nausea, no vomiting, no constipation and no diarrhea/loose stools Musculoskeletal: no back pain, no neck pain, no joint pain, no stiffness and no myalgia Integumentary: no rash Neurologic: + confusion and + memory loss; no gait abnormality, no unsteadiness, no falls, no generalized weakness, no paralysis, no loss of sensation, no numbness, no paresthesia, no radiating pain, no abnormal movements, no syncope, no abnormal speech and no behavioral changes Physical Exam Constitutional: cooperative; no acute distress Neck: trachea midline, no thyromegaly Respiratory: normal respiratory effort Auscultation: lungs clear to auscultation bilaterally; no crackles, no rales, no rhonchi and no wheezes Cardiovascular: Rate/Rhythm: regular rate and regular rhythm Heart Sounds: normal S1 and normal S2 Vessels: no JVD and no carotid bruit Gastrointestinal (Abdomen): Inspection/Auscultation: abdomen normal to inspection Percussion/Palpation: abdomen soft; abdomen nontender, no guarding, abdomen not rigid and no hepatosplenomegaly Skin: no rashes, warm and dry Neurologic: patellar DTR's 2+ bilat, sensation intact and PERRL, EOMI, accommodation nl, no face palsy, no dysarthria Results & Data Results & Data ([facility]) Vital Signs (Past 12 Hours) Vital Signs Temp Pulse Resp BP Pulse Ox 04/28/21 10:26 84 18 95 04/28/21 09:48 67 19 145/98 H 97 04/28/21 09:18 36.6 C 79 16 155/92 H 99 Laboratory Results Laboratory Results WBC 5.75 K/uL (4.8-10.8) 04/28/21 09:44 RBC 5.07 M/uL (4.7-6.1) 04/28/21 09:44 Hgb 16.4 g/dL (14.0-18.0) 04/28/21 09:44 Hct 47.2 % (42-52) 04/28/21 09:44 MCV 93.1 fL (80-100) 04/28/21 09:44 MCH 32.3 pg (25-34) 04/28/21 09:44 MCHC 34.7 g/dL (32-36) 04/28/21 09:44 RDW Std Deviation 44.4 fL (36.4-46.3) 04/28/21 09:44 RDW Coeff of Nini 13.0 % (11.5-14.5) 04/28/21 09:44 Plt Count 218 K/uL (130-400) 04/28/21 09:44 MPV 10.8 fL (7.4-10.4) H 04/28/21 09:44 PT 10.3 Seconds (9.0-12.0) 04/28/21 09:44 INR 1.0 (0.9-1.1) 04/28/21 09:44 APTT 27.1 Seconds (21.0-31.0) 04/28/21 09:44 PTT Ratio 1.0 04/28/21 09:44 Sodium 139 mmol/L (136-145) 04/28/21 09:44 Potassium 4.0 mmol/L (3.5-5.1) 04/28/21 09:44 Chloride 106 mmol/L (98-107) 04/28/21 09:44 Carbon Dioxide 27 mmol/L (21-32) 04/28/21 09:44 Anion Gap 6.0 (3-11) 04/28/21 09:44 BUN 14 mg/dl (7-18) 04/28/21 09:44 Creatinine 0.77 mg/dl (0.6-1.4) 04/28/21 09:44 Est Cr Clr Drug Dosing 104.9 ml/min 04/28/21 09:44 Est GFR ( Amer) 111.9 ml/min 04/28/21 09:44 Est GFR (Non-Af Amer) 96.6 ml/min 04/28/21 09:44 BUN/Creatinine Ratio 17.7 (10-20) 04/28/21 09:44 Glucose 116 mg/dl (70-99) H 04/28/21 09:44 Calcium 9.1 mg/dl (8.5-10.1) 04/28/21 09:44 Magnesium 2.1 mg/dl (1.8-2.4) 04/28/21 09:44 Total Bilirubin 1.0 mg/dl (0.2-1) 04/28/21 09:44 AST 21 U/L (15-37) 04/28/21 09:44 ALT 35 U/L (12-78) 04/28/21 09:44 Alkaline Phosphatase 71 U/L (45-117) 04/28/21 09:44 Troponin I < 0.015 ng/ml (0-0.045) 04/28/21 09:44 Total Protein 7.2 gm/dl (6.4-8.2) 04/28/21 09:44 Albumin 3.8 gm/dl (3.4-5.0) 04/28/21 09:44 Globulin 3.4 gm/dl (2.5-4.0) 04/28/21 09:44 Albumin/Globulin Ratio 1.1 (0.9-2) 04/28/21 09:44 Urine Color Yellow 04/28/21 09:38 Urine Appearance Clear (Clear) 04/28/21 09:38 Urine pH 7.5 (4.5-7.5) 04/28/21 09:38 Ur Specific [place] 1.003 (1.000-1.030) 04/28/21 09:38 Urine Protein Negative (Negative) 04/28/21 09:38 Urine Glucose (UA) Negative (Negative) 04/28/21 09:38 Urine Ketones Negative (Negative) 04/28/21 09:38 Urine Blood Negative (Negative) 04/28/21 09:38 Urine Nitrite Negative (Negative) 04/28/21 09:38 Urine Bilirubin Negative (Negative) 04/28/21 09:38 Urine Urobilinogen Negative (Negative) 04/28/21 09:38 Ur Leukocyte Esterase Negative (Negative) 04/28/21 09:38 COVID-19 Eval Order Covid19 at [facility] 04/28/21 10:13 SARS-CoV-2 (PCR) NEGATIVE (Negative) 04/28/21 10:13 Impressions Chest X-Ray 04/28/21 09:38 XR chest 1V portable CLINICAL HISTORY: stroke alert COMPARISON STUDY: Chest radiograph May 16, 2013. Chest CT October 07, 2017. FINDINGS: Lung volumes are normal. Lungs are clear. There is no pneumothorax or pleural effusion. Cardiac size is normal. Mediastinal contours are normal. There is no evidence for pulmonary edema. IMPRESSION: No acute cardiopulmonary findings. ACT 112: Negative or not required by law. Electronically signed by: Matteo Haley M.D. 04/28/2021 10:[address] 04/28/21 10:[address], HEAD CTA HISTORY: episode of confusion TECHNIQUE: Multiaxial CT images of the head were performed both before and after the intravenous administration of contrast to evaluate the major cerebral vessels. Maximum intensity projection images were also obtained. A dose lowering technique was utilized adhering to the principles of ALARA. COMPARISON: None. FINDINGS: Head CT: The paranasal sinuses and mastoid air cells are clear. The calvarium and skull base are intact. The ventricles and sulci are within normal limits. There is no mass, hematoma, midline shift, or acute infarct. Head CTA: Visualized intracranial internal carotid arteries, distal vertebral arteries, and basilar artery are widely patent. There is no significant stenosis, occlusion, or aneurysm seen within the bilateral ACAs, MCAs, or auto body repair estimator. Severely hypoplastic distal left vertebral artery. This is likely developmental. There is a dominant distal right vertebral artery with a focal area of calcified plaque. Please refer to same day neck CTA for further evaluation of the left cervical internal carotid artery. The major dural venous sinuses are patent. IMPRESSION: 1. No acute intracranial abnormality. 2. No significant stenosis, occlusion, or aneurysm within the [place]. ACT 112: Negative or not required by law. Electronically signed by: Yg Valentine M.D. 04/28/2021 11:06 AM Head CTA 04/28/21 10:[address], HEAD CTA HISTORY: episode of confusion TECHNIQUE: Multiaxial CT images of the head were performed both before and after the intravenous administration of contrast to evaluate the major cerebral vessels. Maximum intensity projection images were also obtained. A dose lowering technique was utilized adhering to the principles of ALARA. COMPARISON: None. FINDINGS: Head CT: The paranasal sinuses and mastoid air cells are clear. The calvarium and skull base are intact. The ventricles and sulci are within normal limits. There is no mass, hematoma, midline shift, or acute infarct. Head CTA: Visualized intracranial internal carotid arteries, distal vertebral arteries, and basilar artery are widely patent. There is no significant stenosis, occlusion, or aneurysm seen within the bilateral ACAs, MCAs, or auto body repair estimator. Severely hypoplastic distal left vertebral artery. This is likely developmental. There is a dominant distal right vertebral artery with a focal area of calcified plaque. Please refer to same day neck CTA for further evaluation of the left cervical internal carotid artery. The major dural venous sinuses are patent. IMPRESSION: 1. No acute intracranial abnormality. 2. No significant stenosis, occlusion, or aneurysm within the [place]. ACT 112: Negative or not required by law. Electronically signed by: Yg Valentine M.D. 04/28/2021 11:06 AM Neck CTA 04/28/21 10:05 CT ANGIOGRAPHY OF THE NECK WITH CONTRAST CLINICAL HISTORY: episode of confusion COMPARISON STUDY: No previous studies for comparison. Technique: CT angiography of the carotid and vertebral arteries was obtained using Opt[employer] and 3D reconstruction on an independent workstation. NASCET criteria was utilized. Automated exposure control was utilized for the study. A dose lowering technique was utilized adhering to the principles of ALARA. Findings: A 4 mm right upper lobe nodule is similar to prior chest CTs. This is likely benign. No acute cervical spine fracture. The right vertebral artery is dominant and patent. The left vertebral artery is diminutive with mild narrowing at the vessel origin. CTA of the head will be reported separately. There is mild plaque within the proximal bilateral internal carotid arteries. Note is made of abnormal appearance of the distal cervical portion of the left internal carotid artery with an outpouching measures 1.3 x 0.7 cm in the craniocaudal by AP dimensions respectively. There is moderate associated calcified plaque. There is mild associated luminal narrowing of the distal cervical portion of the left internal carotid artery. This finding is not acute. No additional significant abnormalities are identified within the major vessels of the neck. IMPRESSION: 1. Abnormal appearance of the distal cervical portion of the left internal carotid artery with a 1.3 x 0.7 cm outpouching which favors a saccular aneurysm. Moderate associated calcified plaque with mild luminal narrowing. Chronic underlying dissection cannot be excluded. 2. No additional significant abnormalities within the major vessels of the neck. 3. Dominant, patent right vertebral artery. Diminutive left vertebral artery. ACT 112: Negative or not required by law. Electronically signed by: Matteo Haley M.D. 04/28/2021 11:11 AM PG Care Time/CCT Total # of Minutes Spent Total Time Spent with Patient: Total time spent is greater than 50% in coor dination of care (as documented) at patient's floor/unit and/or counseling patient: Coding Level of Care Code INT OBSERVATION CARE 70M LVL 3 Diagnoses Hypercholesterolemia E78.00 Amnesia, global, transient G45.4 Carotid aneurysm, left I72.0
--- NOTE | 2021-04-28 15:30 | Electrocardiogram Report ---
Test Reason : Blood Pressure : / mmHG Vent. Rate : 074 BPM Atrial Rate : 074 BPM P-R Int : 160 ms QRS Dur : 088 ms QT Int : 378 ms P-R-T Axes : 019 014 005 degrees QTc Int : 419 ms Normal sinus rhythm Septal infarct , age undetermined Abnormal ECG When compared with ECG of 20-APR-2018 08:50, No significant change was found Confirmed by Charli Goel ([id number]) on 04/28/2021 3:30:38 PM Referred By: REFERRED SELF Confirmed By:Charli Goel
[2021-04-28] MEDS ORDERED: PHARMACIST DISCHARGE MED REC CONSULT PRN (15:48)
[2021-04-28] MEDS ORDERED: ACETAMINOPHEN 325 MG TAB PO PRN (15:48)
[2021-04-28] MEDS ORDERED: ONDANSETRON INJ 2 MG/ML 2 ML VIAL IV PRN (15:48)
--- NOTE | 2021-04-28 19:35 | Magnetic Resonance Report ---
MR brain wo con HISTORY: 65 years-old Male TIA/CVA . Acute strokelike symptoms with memory loss COMPARISON: CT head, CTA head and neck of same day TECHNIQUE: Multiplanar multisequence MRI of the brain was obtained without the use of IV contrast. FINDINGS: Die Repair Machinist localizer images demonstrate no gross extracranial abnormality. No restricted diffusion to sugg est acute or subacute infarct. No acute intracranial hemorrhage, midline shift, abnormal extra-axial collection, hydrocephalus or intracranial mass. No pathologic blooming artifact. Mild scattered T2/FL AIR subcentimeter hyperintense foci are noted within the subcortical and deep white matter of the cer ebral hemispheres. Cerebral venous sinuses and major arterial flow voids are patent. Mastoid air cell s are clear. Minimal mucosal thickening of the paranasal sinuses. The skull, orbits and soft tissues are unremarkable. IMPRESSION: 1. No acute intracranial abnormality. No acute or subacute infarct. 2. Findings suggestive of mild chronic microvascular ischemic disease. ACT 112: Negative or not required by law. The above report was generated using voice recognition software. It may contain grammatical, syntax o r spelling errors. Electronically signed by: Clyde Navarro M.D. 04/28/2021 7:33 PM
[2021-04-28] MEDS ORDERED: ATORVASTATIN 20 MG TAB PO SCH (21:00)
[2021-04-28] MEDS ORDERED: ASPIRIN 81 MG ECTAB PO SCH (21:00)
[2021-04-29 07:09] LABS: Basophils # (auto) 0.05 K/uL (0-0.2); Basophils % (auto) 1.3 %; Eosinophils # (auto) 0.09 K/uL (0-0.5); Eosinophils % (auto) 2.3 %; Hematocrit (blood only) 45.3 % (42-52); Hemoglobin 15.8 g/dL (14.0-18.0); Immature Granulocytes # (auto) 0.02 K/uL (0.00-0.02); Immature Granulocytes % (auto) 0.5 %; Lymphocytes # (auto) 0.92 K/uL (1.2-3.4); Lymphocytes % (auto) 23.2 %; Mean Corpuscular Hemoglobin 32.4 pg (25-34); Mean Corpuscular Hgb Conc 34.9 g/dL (32-36); Mean Corpuscular Volume 92.8 fL (80-100); Mean Platelet Volume 10.7 fL (7.4-10.4); Monocytes # (auto) 0.41 K/uL (0.11-0.59); Monocytes % (auto) 10.4 %; Neutrophils # (auto) 2.47 K/uL (1.4-6.5); Neutrophils % (auto) 62.3 %; Platelet Count 203 K/uL (130-400); RDW Standard Deviation 44.4 fL (36.4-46.3); Red Blood Count 4.88 M/uL (4.7-6.1); White Blood Count 3.96 K/uL (4.8-10.8)
[2021-04-29 07:38] LABS: BUN Creatinine Ratio 18.1 (10-20); Calcium 8.7 mg/dl (8.5-10.1); Est GFR (African American) 111.9 ml/min; Est GFR (Non-African American) 96.6 ml/min; Magnesium 2.2 mg/dl (1.8-2.4); Potassium 3.8 mmol/L (3.5-5.1)
[2021-04-29 07:39] LABS: Estimated Average Glucose 103 mg/dl; Hemoglobin A1C 5.2 % (4.5-5.6)
--- NOTE | 2021-04-29 09:08 | Neurology Consultation ---
Date of Consultation April 29, 2021 Assessment & Plan (1) Episode of confusion: (2) Carotid aneurysm, left: (3) Peripheral neuropathy: (4) Chronic cerebral ischemia: this patient had a brief ( 30 minutes) episode of confusion the morning of April 28. He has had no mental status issues since and currently on neurologic examination he has no focal signs, meningeal signs, or encephalopathy. MRI of the brain showed no stroke. CT angiography did show a 1 centimeter left internal carotid artery distal saccular aneurysm. The etiology of his confusional event is likely vascular. A transient decreased perfusion pressure from vaso spasm or a true TIA is possible. Patient did have hypertension on admission in the ER although he his blood pressure has normalized since. clinically, this episode is not consistent with a seizure. I doubt this represents transient global amnesia otherwise. Patient has mild chronic cerebral ischemia likely secondary to his years of cigarette smoking , as well as dyslipidemia and Genetics. The patient has evidence of a mild peripheral neuropathy involving predominantly sensory fibers Of large and small caliber. I am very concerned about his use of alcohol (2-3 mixed drinks of scotch per day most days for the last 10 years). This could cause an alcoholic neuropathy. Alternatively vitamin deficiencies or other issues could cause neuropathy as well. Recommendations: 1. EEG has been ordered. 2. Echocardiogram if not completed. 3. Increase atorvastatin to 40 milligrams daily. 4. change 81 milligram aspirin to 75 milligrams clopidogrel. 5. B12, ESR, folate, Lyme antibody titers, 6. consider a vascular surgery consult as an outpatient the saccular aneurysm in the left internal carotid artery. 7. I can follow up as an outpatient Overall, I spent a total of 100 minutes with this case including review of records, review of CT and MRI films, direct evaluation the patient at bedside, and discussion of the case with the patient at bedside, RN at bedside, and Cintia Peacock, including differential diagnosis and treatment options. History of Present Illness Reason for Consultation: Patient is a 65-year-old, [facility], for neurologic consultation regarding episode of confusion. Requesting Physician: Dr. Aguirre Attending Physician: Gregory Lloyd, DO History of Present Illness This patient has a history of dyslipidemia on atorvastatin. He has been on 81 milligram aspirin daily for many years. He has a history of rectal cancer resected in 2017 with no obvious recurrence. He did not receive radiation or chemo. He does have a history of anxiety and depression which is stable. Patient does have a history of concussion playing sports with an episode an 8th grade causing a loss of consciousness. He was never hospitalized and recovered from these 2 or 3 concussions he had a teenager. He has no history of migraine or other headaches or seizures. He has had no alterations in consciousness otherwise. Patient woke at 06:00 on April 28 feeling normal. He had slept well the night before and was not ill. 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 He was checking emails and the lists of activities that he was going to do for the day. Around 0740 the patient started to become a little disoriented and was unsure of what he was looking at or why. He knew he could not recall fax well and knew he was confused. Apparently he called a colleague and it was determined based on the conversation that the patient should go to the emergency room. He did not think his speech was slurred. He remembers everything that happened and the fact that he was confused. He denied lightheadedness or dizziness, headache of any nature before, during, or after this episode, pain, or numbness. He had no vision or speech issues. Around 30 minutes after the onset of the event at 08:15, he started "coming to" and realizing that his head was clearly. He started recall and things better and remembered what it is that he was trying to do during the 0.5 hour earlier. He has had no issues with cognition or memory since. He arrived to the emergency room at 0918 on April 28. Blood pressure was 155/92, temperature 36.6, pulse 79 and regular, respiratory rate 16, and O2 saturation 99 percent. He had a normal neurologic examination with no focal findings, encephalopathy, or meningeal signs. CBC and Chem profile were unremarkable. Urinalysis was normal. Chest x-ray was unremarkable. CT scan of the head showed no acute changes. CT angiography of the head was unremarkable with no vascular anomalies. CT angiography of the neck revealed a saccular aneurysm in the distal left internal carotid artery of 10 x 7 millimeters. MRI of the brain revealed mild nonspecific old small vessel ischemic disease in the white matter with no acute changes or other abnormalities. I reviewed CT and MRI films. The patient feels well today has had no other issues or problems. Overnight he had normal sinus rhythm in the 50s and 60s and his blood pressure is 118/79. Today, Chem profile and CBC are unremarkable. His hemoglobin A1c is 5.2, triglycerides 87, and total cholesterol 183. Allergies Allergy/AdvReac Type Severity Reaction Status Date / Time No Known Drug Allergies Allergy Verified 01/16/21 08:18 Home Medications Medication Instructions Recorded Confirmed Type aspirin 81 mg tablet,delayed 81 mg PO HS tab 12/29/18 04/28/21 History release atorvastatin 20 mg tablet 20 mg PO HS #90 tab 01/16/21 04/28/21 Rx nystatin-triamcinolone 100,000 1 appln TOP BID PRN 04/28/21 04/28/21 History unit/g-0.1 % topical cream omega 6-ikq-juw-fish oil 1,000 mg 1 cap PO DAILY 04/28/21 04/28/21 History (120 mg-180 mg) capsule (Fish Oil) Patient History Medical History Anxiety Colon cancer 08/2016--SX Depression Hyperlipidemia Taking oral medications for this. Osteoarthritis Surgical History History of bowel resection (09/08/16) 2016--FOR COLON CANCER @ [facility] [place] History of colonoscopy History of repair of left rotator cuff (~2014) History of surgery (05/29/13) spermatocelectomy History of tooth extraction WISDOM TEETH Family History Mother , age 84 of uncertain cause Family history of reaction to anesthesia NAUSEATED Palpitations Grandmother Diabetes Hypertension Father , age 44 of an NC Myocardial infarction Heart disease Aunt Hypertension Breast cancer Denies family history of Colon cancer Ovarian cancer Prostate cancer Social History (Updated 04/29/21 @ 09:16 by Tim Macias MD) Smoking Status: Former smoker Number of Years Since Quit: 16; Second Hand Exposure: No; Do You Dip or Chew Tobacco: No; Tobacco Cessation Education Requested by Patient: No Hx Alcohol Use: Yes Alcohol type: hard liquor Alcohol Intake Frequency Comment: 2-3 mixed drinks (scotch) per day, 6/7 days of the week X10 yrs Hx Substance Use: No Preferred Language: [place]an Communication Ability: Effective Back Roll Lathe Operator Required: No Beliefs That Will Affect Care: None marital status: Current Living Situation: Significant Other current occupational status: employed 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 Other Information That Helps Us Care for You: No Feels Safe at Home: Yes Safety Concerns: Feels Safe At This Time Childhood Exposure to Second-Hand Smoke: Yes Dental Care, Regularly: Yes Physical Activity Frequency: Daily Seatbelt Use: always Sunscreen Use: No Assistive Devices: None Review of Systems Constitutional: no fever, no fatigue and no weakness Eyes: no diplopia, no eye pain and no worsening vision Ear, Nose, Mouth, Throat: + tinnitus and + hearing loss; no ear pain, no dizziness, no snoring, no hoarseness and no dysphagia Respiratory: no cough and no dyspnea Cardiovascular: no chest pain, no palpitations and no lightheadedness Gastrointestinal: no abdominal pain, no nausea and no vomiting Musculoskeletal: no back pain, no neck pain, no radicular pain, no joint pain and no myalgia Integumentary: no rash and no lesions Neurologic: no gait abnormality, no localized weakness, no generalized weakness, no tingling, no numbness, no tremor(s), no abnormal movements, no headache(s), no abnormal speech, no confusion and no memory loss Psychiatric: no depression, no irritability, no anxiety, no difficulty concentrating, no confusion and no hallucinations Endocrine: no fatigue and no flushing Hematologic / Lymphatic: no easy bleeding and no easy bruising Allergy / Immunological: no urticaria and no problem reported Exam (Neuro) Physical Exam: The patient is right-handed. The patient is awake, alert, and attentive. Speech is normal without any aphasia or dysarthria. The patient can name objects, repeat phrases, and has normal spontaneous speech. Mentation and thought processes are intact, with orientation to person, place and time, and normal fund of knowledge. Attention and concentration are normal. Mood and affect are normal and appropriate. General appearance and grooming are normal. Short and long-term memory are intact. The discs are sharp with positive venous pulsations bilaterally. There are no exudates, hemorrhages, or blood vessel changes seen. Pupils are 4 mm bilaterally and reactive to light. Extraocular eye muscles are intact without nystagmus. Visual acuity and visual ravi seem normal grossly to confrontation. There are no deficits to sensation in the face in all 3 distributions of the fifth cranial nerve bilaterally. Corneal reflexes are positive bilaterally. Facial strength and symmetry was normal bilaterally. Hearing seems normal bilaterally. Palate moves well without asymmetry. There is normal sternoclei domastoid and trapezius (shoulder shrug) strength bilaterally. Tongue is midline with good strength bilaterally. Neck has a full range of motion without discomfort. There are no cervical bruits bilaterally. There are no cranial or ocular bruits. Heart is without murmur. There is a regular rhythm and rate. Cervical, thoracic, and lumbar spine are nontender to palpation. Gait is narrow based, with good arm swing, turns, and stance. With outstretched arms there is no drift. There are no resting, postural, or action tremors. There is no ataxia with finger to nose testing. There is good facility in the hands. No other abnormal involuntary movements are noted. Motor strength is 5/5 diffusely in the arms bilaterally including deltoids, biceps, triceps, brachioradialis, wrist flexors and extensors, information technology manager, and intrinsic hand muscles. Motor strength is 5/5 diffusely in the legs bilaterally including hip flexors, quadriceps, hamstrings, gastrocnemius, tibialis anterior, tibialis posterior, and Peroneii muscles. Toe extensors are normal and there is good bulk in the extensor digitorum brevis muscles bilaterally. The limbs have good tone without rigidity or spasticity. There is no atrophy noted in the muscles. Muscle bulk is normal, there is no tenderness to palpation, no myotonia to percussion, and no fasciculations seen. Sensory examination reveals very mild decreased sensation to pin in a stocking glove distribution bilaterally. There was also mild to moderate vibratory sense loss distally in the limbs as well. Some very mild position sense loss was present in the feet. Reflexes are 1/4 in the biceps, triceps, brachioradialis, and quadriceps tendons bilaterally. Achilles tendon reflexes were absent bilaterally. There is no clonus bilaterally. Toes are downgoing with plantar stimulation bilaterally. Peripheral pulses are present and of normal quality distally in all 4 limbs. There is no peripheral edema noted in the limbs. Results & Data ([facility]) Vital Signs (Past 12 Hours) Vital Signs Temp Pulse Pulse Resp BP Pulse Ox 04/29/21 08:06 63 04/29/21 07:54 36.8 C 66 18 125/81 98 04/29/21 03:00 36.5 C 58 L 18 118/79 96 04/28/21 23:26 58 L 04/28/21 22:54 36.9 C 56 L 18 134/89 98 04/28/21 21:00 36.7 C 69 14 137/85 96 PG Care Time/CCT Total # of Minutes Spent Total Time Spent with Patient: Total time spent is greater than 50% in coordination of care (as documented) at patient's floor/unit and/or counseling patient: Coding Level of Care Code 13089 Office/OBS Consult Lvl 5 Diagnoses Episode of confusion R41.0 Carotid aneurysm, left I72.0 Peripheral neuropathy G62.9 Chronic cerebral ischemia I67.82 Time Spent (min) 110 Comment At modifiers as able
--- NOTE | 2021-04-29 10:46 | Electroencephalogram ---
EEG Procedure Note Date of Service April 29, 2021 Start / End Times Start Time: 957 End Time: [address] Aguirre History 65-year-old history of episode of confusion. Home Medication List Medication Instructions Recorded Confirmed Type aspirin 81 mg tablet,delayed 81 mg PO HS tab 12/29/18 04/28/21 History release atorvastatin 20 mg tablet 20 mg PO HS #90 tab 01/16/21 04/28/21 Rx nystatin-triamcinolone 100,000 1 appln TOP BID PRN 04/28/21 04/28/21 History unit/g-0.1 % topical cream omega 1-ilf-tot-fish oil 1,000 mg 1 cap PO DAILY 04/28/21 04/28/21 History (120 mg-180 mg) capsule (Fish Oil) Inpatient Medication List Aspirin (Aspirin 81 Mg Ectab) 81 mg PO HS DONNA Stop: 05/28/21 20:59 Last Admin: 04/28/21 22:29 Dose: 81 mg Documented by: [id number] Atorvastatin Calcium (Atorvastatin 20 Mg Tab) 20 mg PO HS DONNA Stop: 05/28/21 20:59 Last Admin: 04/28/21 22:29 Dose: 20 mg Documented by: [id number] Discontinued Medications Ioversol (Optiray 320 125ml) 120 ml IV ONCE ONE Stop: 04/28/21 10:46 Last Admin: 04/28/21 10:42 Dose: 120 ml Documented by: [id number] Description This is a 21 electrode EEG with a single channel dedicated to limited EKG. The electrodes were placed in accordance with the International 10-20 system. Interpretation The predominant background activity consists of a very well modulated 11 Hz activity, of up to 40 mV in amplitude,seen symmetrically distributed over the posterior head regions bilaterally. This activity attenuates nicely with eye- opening and other alerting procedures. Photic stimulation was performed and elicited Mild driving response at mid flash frequencies, but no abnormal responses were seen. Hyperventilation was not performed. A minimal amount of muscle and movement artifact activity contaminated the recording and did not hinder interpretation to any significant degree. Throughout the waking portion of the recording, no focal abnormalities, abnormal slow activity, or potentially epileptogenic discharges are seen. The patient entered the drowsy state and brief periods of stage II sleep with no further activation. In summary, this EEG was normal during wakefulness and sleep. No focal abnormalities, potentially epileptogenic discharges, or abnormal slow activity was seen. Clinical Correlation The abscence of potentially epileptogenic activity does not exclude a seizure disorder, since interictally, EEGs can be normal. Clinical correlation is required.
[2021-04-29] MEDS ORDERED: STROKE PATIENT DISCHARGE STA (11:30)
[2021-04-29] MEDS ORDERED: FLUARIX QUADRIVALENT 0.5 ML SYR IM ONE (12:01)
--- NOTE | 2021-04-29 12:03 | Pharmacy Report ---
Pharmacist Stroke Counseling - Date of Service April 29, 2021 - Scope: Pharmacy has been consulted to provide medication discharge counseling for this patient admitted with transient ischemic attack as per the Pharmacist Discharge Counseling for Stroke Patients Protocol. - Medications on Discharge: Home Medications Medication Instructions Recorded Confirmed aspirin 81 mg tablet,delayed 81 mg PO HS tab 12/29/18 04/28/21 release nystatin-triamcinolone 100,000 1 appln TOP BID PRN 04/28/21 04/28/21 unit/g-0.1 % topical cream omega 9-kcb-sfp-fish oil 1,000 mg 1 cap PO DAILY 04/28/21 04/28/21 (120 mg-180 mg) capsule (Fish Oil) New Rx's Medication Instructions Recorded atorvastatin 20 mg tablet 20 mg PO HS #90 tab 01/16/21 atorvastatin 40 mg tablet (Lipitor) 40 mg PO HS #30 tab 04/29/21 clopidogrel 75 mg tablet (Plavix) 75 mg PO DAILY #30 tab 04/29/21 - Action: The above medications, specifically ones for stroke treatment/prophylaxis, have been reviewed in detail with the patient prior to discharge. This includes indication, common adverse reactions, drug interactions, and medication administration. Medication counseling has been employed using the teach-back method to ensure understanding. - Outcome: The patient have demonstrated understanding of the medications. Additional comments: -patient counseled on Plavix and increase in Lipitor dose -recommended to not store medications in bathroom due to issues with humidity. -no questions except that he would like flu vaccine. Thank you for allowing pharmacy to be involved in the care of this patient. Please call [phone] with any additional questions
--- NOTE | 2021-04-29 13:40 | XCELERA ---
[id number]
--- NOTE | 2021-04-29 16:51 | Discharge Summary ---
Date of Service April 29, 2021 Admission HPI Per Admitting Provider This is a 65-year-old male past medical history hypercholesterolemia that presents today complaining of episodic confusion. Patient is here with significant other and is a good historian. Patient tells me that he was feeling fine today. He went to his home office to work on his computer. While he was working on a schedule, he noted that he had significant amnesia-like symptoms. He was able to see the schedule but did not recognize any of the names or why he was looking at it. He may have answered some emails but did not recall what may have been exchanged or why he was sending these. At one point, an employee called and he was unable to remember who the employee was or why he was calling. This confusion lasted approximately 30 minutes and seemed to mostly resolved very suddenly. At no time did he have any other neurologic symptoms such as weakness, numbness, tingling of any extremities, slurred speech, visual changes, headache, or other issues. At the time my evaluation, the patient tells me that he feels essentially back to normal if not slightly foggy in his mentation. Patient has had not had any recurrent neurologic symptoms since his arrival to the emergency room. Patient is now being placed in observation for possible TIA versus seizure. Principal Diagnosis 1. Transient confusionpresumed TIA 2. Cerebrovascular disease 3. Carotid aneurysm (left ICA) 4. Peripheral neuropathy 5. Daily alcohol use Discharge Exam General: Resting comfortably in his hospital bed. NAD. HEENT: Head is AT/NC buccal mucosa is moist and pink. No obvious bruits Neck: No JVD. Negative hepatojugular reflex Cardiac: RRR without M/G/R Lungs: CTA without W/R/R Abdomen: Normoactive X4. Soft and nontender in all quadrants. Extremities: No peripheral clubbing cyanosis or edema Neuro: A&O X4 cranial nerves II through XII are grossly intact no focal neuro deficits. Shoulder shrug hand [id number] intact without deficits. Tongue midline. Uvula midline. Sensation intact and symmetrical bilaterally. Administrative Services Assistant strength intact and symmetrical bilaterally. Negative pronator drift. Negative Romberg. Downward Babinski bilaterally. Skin: No obvious skin lesions or rashes Psych: Appropriate affect pleasant and cooperative Discharge Data Allergies Allergy/AdvReac Type Severity Reaction Status Date / Time No Known Drug Allergies Allergy Verified 01/16/21 08:18 Consultations 04/28/21 12:18 ED Decision to Admit Stat 04/28/21 15:48 Consult Neurology Routine Recommendations: 1. EEG has been ordered. 2. Echocardiogram if not completed. 3. Increase atorvastatin to 40 milligrams daily. 4. change 81 milligram aspirin to 75 milligrams clopidogrel. 5. B12, ESR, folate, Lyme antibody titers, 6. consider a vascular surgery consult as an outpatient the saccular aneurysm in the left internal carotid artery. 7. I can follow up as an outpatient Ordered Studies 04/28/21 10:05 CT head/brain wo con Stat CT angio head w con Stat CT angio neck with con Stat FINDINGS: Head CT: The paranasal sinuses and mastoid air cells are clear. The calvarium and skull base are intact. The ventricles and sulci are within normal limits. There is no mass, hematoma, midline shift, or acute infarct. Head CTA: Visualized intracranial internal carotid arteries, distal vertebral arteries, and basilar artery are widely patent. There is no significant stenosis, occlusion, or aneurysm seen within the bilateral ACAs, MCAs, or mill oiler. Severely hypoplastic distal left vertebral artery. This is likely developmental. There is a dominant distal right vertebral artery with a focal area of calcified plaque. Please refer to same day neck CTA for further evaluation of the left cervical internal carotid artery. The major dural venous sinuses are patent. IMPRESSION: 1. No acute intracranial abnormality. 2. No significant stenosis, occlusion, or aneurysm within the [place]. IMPRESSION: 1. Abnormal appearance of the distal cervical portion of the left internal carotid artery with a 1.3 x 0.7 cm outpouching which favors a saccular aneurysm. Moderate associated calcified plaque with mild luminal narrowing. Chronic underlying dissection cannot be excluded. 2. No additional significant abnormalities within the major vessels of the neck. 3. Dominant, patent right vertebral artery. Diminutive left vertebral artery. 04/28/21 15:48 MR brain wo con Routine IMPRESSION: 1. No acute intracranial abnormality. No acute or subacute infarct. 2. Findings suggestive of mild chronic microvascular ischemic disease. Echocardiogram: No LV systolic dysfunction overseas EF 60 to 65%). No regional wall motion abnormality. Borderline concentric LV hypertrophy. No significant valvular disease. Hospital Course (1) Episodic confusion: -Patient presented with a brief episode of confusion that lasted approximately 30 minutes this was self-limited -The interesting thing is that patient was completely aware that he was confused (he was working on an email and talking with coworkers and unaware of where a customer livedhe has been in the house multiple times, and aware that he was confused with the schedule that he was working on) -Symptoms resolved prior to arrival -CT of the head showed no acute pathology -CTA of the head and neck showed chronic vascular changes as outlined above along with a left ICA aneurysm with chronic dissection -MRI done showing no acute pathology/acute ischemic disease -EEG essentially within normal limits -Echocardiogram unremarkable -Continued on his aspirin and low-dose statin -Seen by neurology who feels this could be consistent with a TIA and recommends transitioning aspirin to Plavix with up titration in his statin for high intensity statin therapy and will see patient in follow-up -Neurology believes focal seizure is unlikely -Absolutely no neurological deficits to speak of. Confusion lasted 30 minutes and was self-limiting. Has not returned. (2) Chronic cerebral ischemia: -See above. Transition aspirin to Plavix. Increase statin. (3) Carotid aneurysm, left: -Patient will be referred to vascular surgery to be seen as an outpatient (4) Peripheral neuropathy: -Picked up by neurology and felt to be related to daily alcohol use -Alcohol cessation encouraged -B12, Lyme titer antibodies, and ESR orderedpending (5) Hypercholesterolemia: -Increase statin therapy as outlined above (6) Alcohol abuse, daily use: -Encouraged alcohol cessation Discharged home today with Plavix and high intensity statin therapy Follow-up with neurology as an outpatient Follow-up with vascular surgery regarding left ICA aneurysm with chronic dissection Total Time Total Time Spent Total Time Spent (In Minutes): 60 minutes including time spent with patient, coordination of care, D/W Neuro and completion of documentation. Discharge Plan Discharge Items Patient Disposition: Home - Home Health Services Reason For Visit: TIA VS Seizure Discharge Diagnosis: 1. Episodic confusion 2. ? TIA ("mini-stroke") 3. Carotid Aneurysm- follow up with Vascular 4. Neuropathy 5. Alcohol Use Activity: Resume your previous activity Driving/Machine Use: resume after seen by Neuro in 1 week Non-emergency contact: Primary Care Provider, Specialist and Neurologist Call non-emergency contact if: you have any medication questions and your symptoms worsen Follow-up/Referrals: Charli Acosta MD [Primary Care Provider] - 05/07/21 10:15 am Tim Macias MD [Physician] - 05/08/21 9:00 am Jassi Carbone MD [Physician] - (A referral has been sent to Dr. Carbone on your behalf. Dr. Carbone is a vascular surgeon who can further evaluate an abnormality that was found related to your left carotid artery. His office will reach out to you directly to schedule.) Diet: Heart Healthy Addtl Attending Provider Instructions: -You were hospitalized with episodic confusion that was self-limited and resolved -Your work-up was thorough and revealed no evidence of acute stroke but it is suspected that you had a TIA ("mini stroke") -To reduce the risk of subsequent events (and "the big event" as discussed), your aspirin has been transitioned to Plavix and your Lipitor has been increased (recommendations by neurology) -You should follow-up with neurology in 1 week -In addition, you were found to have an aneurysm in the left carotid artery. You need to follow-up with vascular surgery to determine need for intervention. A referral has been made and they will call you with an appointment date and time. If you do not hear from them by the end of the week, please call us to follow-up. -Avoid driving until seen in follow-up by neurology -Return to the ED for any new or worsening symptoms Pending Studies at Discharge: Yes Studies:: B12, ESR, folate, Lyme antibody titers Stand-Alone Forms: Medications to Prevent Stroke, My [facility] Medications and DC Order Prescriptions: New atorvastatin [Lipitor] 40 mg tablet 40 mg PO HS Qty: 30 RF: 0 clopidogrel [Plavix] 75 mg tablet 75 mg PO DAILY Qty: 30 RF: 0 Continued omega 9-kvd-yrj-fish oil [Fish Oil] 1,000 mg (120 mg-180 mg) Capsule 1 cap PO DAILY RF: 0 nystatin-triamcinolone 100,000-0.1 unit/g-% cream 1 appln TOP BID PRN (Reason: Skin Irritation) RF: 0 Discontinued atorvastatin 20 mg tablet 20 mg PO HS Qty: 90 RF: 3 aspirin 81 mg tablet,delayed release (DR/EC) 81 mg PO HS RF: 0 Discharge Orders: Discharge Order (Routine); Ordered 04/29/21 Ordered By: Cintia Peacock Admission Data Admit Date/Time: 04/28/21 13:04 Attending Provider: Gregory Lloyd Admit Provider: Imtiaz Aguirre Primary Care Provider: Charli Acosta Other Providers: Imtiaz Aguirre ; Tim Macias Other Interventions: Discharge Summary Assessment (RN) Last Done: 04/29/21 16:33 Supervising Physician Co-Signing Physician Notes Patient seen and examined on the day of discharge. I agree with the discharge summary by Cintia LAWRENCE. I have reviewed the chart including labs, imaging and plans for discharge. patient doing well, no further confusion, no focal deficits on exam, speaking well full stroke work up complete, appreciate neurology consultation - Transient confusion, possible TIA MRI brain without stroke change aspirin to Plavix, increase statin, d/c to home and neurology follow up [place] [address] OBS Care - Discharge Patient Type Established Diagnoses Episodic confusion R41.0 Chronic cerebral ischemia I67.82 Carotid aneurysm, left I72.0 Peripheral neuropathy G62.9 Hypercholesterolemia E78.00 Alcohol abuse, daily use F10.10
== END 2021-04-29 17:05 | disposition home health service (06) ==
LOC: EDINP 09:15 → ED 09:15 → SUATTDRO 13:04 → EDINP 18:49 → 2N 20:21